=== PATIENT | male | born 1955 | race Caucasian/White ===

== ENCOUNTER 2017-09-13 21:42 | Emergency (ER) | payer OTHER ==
[2017-09-13 22:38] VITALS: BP 133/84; PULSE 111; RESP 21; TEMP 98.4; O2SAT 98
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
== END 2017-09-14 00:07 | disposition home or self-care (01) ==
LOC: NEPD 21:42
DX: Z02.89 Encounter for other administrative examinations (principal); Z72.0 Tobacco use
CPT/HCPCS: 99283

== ENCOUNTER 2017-09-17 14:00 | Inpatient (IN) | payer SELFPAY ==
[~2017-09-17] VITALS: Ht 182.9 cm; Wt 85.0 kg
[2017-09-17 14:09] VITALS: BP 174/92; PULSE 93; RESP 28; TEMP 98.7; O2SAT 95
[2017-09-17] MEDS: SODIUM CHLORIDE 0.9% FLUSH 10 ML FLUSH IVF PRN ×2 (14:41→15:50)
[2017-09-17] MEDS ORDERED: ONDANSETRON HCL 4 MG/2 ML VIAL IVP ONE (14:45)
[2017-09-17] MEDS ORDERED: MORPHINE SULFATE 4 MG/ML INJ IV PUSH ONE (14:45)
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
[2017-09-17 15:06] LABS: AUTOMATED NEUTROPHIL # 4.1 TH/MM3 (1.8-7.7); BASOPHIL # 0.1 TH/MM3 (0-0.2); EOSINOPHIL # 0.1 TH/MM3 (0-0.4); EOSINOPHIL % 0.9 % (0.0-4.0); HEMATOCRIT 40.9 % (39.0-51.0); HEMOGLOBIN 14.3 GM/DL (13.0-17.0); LYMPH % 22.6 % (9.0-44.0); LYMPHOCYTE # 1.5 TH/MM3 (1.0-4.8); MEAN CELL VOLUME 88.2 FL (80.0-100.0); MEAN CORPUSCULAR HEMOGLOBIN 30.8 PG (27.0-34.0); MEAN CORPUSCULAR HGB CONC 34.9 % (32.0-36.0); MEAN PLATELET VOLUME 7.9 FL (7.0-11.0); MONO % 11.9 % (0.0-8.0); MONOCYTE # 0.8 TH/MM3 (0-0.9); NEUT % 63.6 % (16.0-70.0); PLATELET COUNT 322 TH/MM3 (150-450); RED BLOOD COUNT 4.64 MIL/MM3 (4.50-5.90); RED CELL DISTRIBUTION WIDTH 13.5 % (11.6-17.2); WHITE BLOOD COUNT 6.5 TH/MM3 (4.0-11.0)
[2017-09-17 15:28] LABS: BICARBONATE 26.4 MEQ/L (21.0-32.0); BLOOD UREA NITROGEN 10 MG/DL (7-18); CALCIUM 9.8 MG/DL (8.5-10.1); CHLORIDE 106 MEQ/L (98-107); CREATININE 0.77 MG/DL (0.60-1.30); GLOMERULAR FILTRATION RATE 102 ML/MIN (>89); GLUCOSE,RANDOM 123 MG/DL (74-106); SODIUM (NA) 139 MEQ/L (136-145)
[2017-09-17] MEDS ORDERED: HYDROmorphone HCL PF 2 MG/ML VIAL IV PUSH ONE (15:30)
[2017-09-17] MEDS ORDERED: DEXAMETHASONE SOD PHOS 4 MG/ML VIAL IV PUSH ONE (15:45)
[2017-09-17] MEDS ORDERED: SODIUM CHLOR 0.9% 1000 ML INJ 1,000 ML IV ONE (15:45)
[2017-09-17 15:58] VITALS: BP 170/92; PULSE 96; RESP 20; O2SAT 97
[2017-09-17 16:00] VITALS: BP 163/86; PULSE 92; RESP 25; O2SAT 9; O2SAT 97
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
[2017-09-17 16:53] LABS: PROTHROMBIN TIME - PATIENT 10.4 SEC (9.8-11.6)
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
[2017-09-17] MEDS ORDERED: SODIUM CHLORIDE 0.9% FLUSH 10 ML FLUSH IV FLUSH PRN (17:30)
[2017-09-17] MEDS ORDERED: NALOXONE HCL 0.4 MG/ML AMP IV PUSH PRN (17:30)
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
[2017-09-17] MEDS ORDERED: PANTOPRAZOLE SODIUM 40 MG VIAL IV PUSH SCH (18:00)
[2017-09-17] MEDS: HYDROmorphone HCL PF 2 MG/ML VIAL IV PRN ×2 (18:38→22:29)
[2017-09-17 18:42] VITALS: BP 157/103; PULSE 110; RESP 18; O2SAT 96
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
[2017-09-17 20:00] VITALS: BP 147/91; PULSE 109; RESP 18; TEMP 97.2; O2SAT 95
[2017-09-17] MEDS ORDERED: SODIUM CHLORID 0.9% 500 ML IV PRN (21:45)
[2017-09-17] MEDS ORDERED: LACTATED RINGER'S 1000 ML IV PRN (21:45)
[2017-09-17] MEDS ORDERED: METOPROLOL TARTRATE 25 MG TAB PO PRN (21:45)
[2017-09-17] MEDS ORDERED: CHLORHEXIDINE GLUCONATE 2 % 1 PACK (2 CLOTHS) TOPICAL PRN (21:45)
[2017-09-17] MEDS ORDERED: POVIDONE IODINE 5% (ANTISEPSIS KIT) 4 APPLICATIONS EACH NARE PRN (21:45)
[2017-09-17] MEDS: DEXAMETHASONE SOD PHOS 4 MG/ML VIAL IV PUSH SCH (22:28)
[2017-09-17] MEDS: SODIUM CHLORIDE 0.9% FLUSH 10 ML FLUSH IV FLUSH SCH (22:29)
[2017-09-18 00:15] VITALS: BP 119/75; PULSE 95; RESP 18; TEMP 98.4; O2SAT 96
[2017-09-18 04:00] VITALS: BP 123/71; PULSE 84; RESP 17; TEMP 96.7; O2SAT 96
[2017-09-18] MEDS: DEXAMETHASONE SOD PHOS 4 MG/ML VIAL IV PUSH SCH ×2 (04:01→10:06)
[2017-09-18] MEDS: HYDROmorphone HCL PF 2 MG/ML VIAL IV PRN ×2 (04:01→10:04)
[2017-09-18] MEDS: SODIUM CHLORIDE 0.9% FLUSH 10 ML FLUSH IV FLUSH SCH (07:42)
[2017-09-18 08:00] VITALS: BP 148/90; PULSE 95; RESP 18; TEMP 97.5; O2SAT 96
[2017-09-18 08:31] LABS: AUTOMATED NEUTROPHIL # 7.8 TH/MM3 (1.8-7.7); BASOPHIL % 0.1 % (0.0-2.0); HEMATOCRIT 39.3 % (39.0-51.0); HEMOGLOBIN 13.5 GM/DL (13.0-17.0); LYMPH % 7.4 % (9.0-44.0); LYMPHOCYTE # 0.6 TH/MM3 (1.0-4.8); MEAN CELL VOLUME 89.2 FL (80.0-100.0); MEAN CORPUSCULAR HEMOGLOBIN 30.7 PG (27.0-34.0); MEAN CORPUSCULAR HGB CONC 34.4 % (32.0-36.0); MEAN PLATELET VOLUME 7.9 FL (7.0-11.0); MONO % 4.1 % (0.0-8.0); MONOCYTE # 0.4 TH/MM3 (0-0.9); NEUT % 88.4 % (16.0-70.0); PLATELET COUNT 305 TH/MM3 (150-450); RED CELL DISTRIBUTION WIDTH 13.8 % (11.6-17.2); WHITE BLOOD COUNT 8.8 TH/MM3 (4.0-11.0)
[2017-09-18 08:50] LABS: BICARBONATE 29.6 MEQ/L (21.0-32.0); CALCIUM 10.1 MG/DL (8.5-10.1); CREATININE 0.72 MG/DL (0.60-1.30)
[2017-09-18 11:50] VITALS: BP 146/85; PULSE 109; RESP 18; TEMP 96.9; O2SAT 99
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
[2017-09-18] MEDS ORDERED: LORazepam 2 MG TAB PO PRN (12:45)
[2017-09-18] MEDS ORDERED: LORazepam 1 MG TAB PO PRN (12:45)
[2017-09-18] MEDS ORDERED: FLUMAZENIL 0.5 MG/5 ML VIAL IV PUSH PRN (12:45)
[2017-09-18] MEDS ORDERED: LORazepam 2 MG/ML VIAL IV PUSH PRN ×4 (12:45)
[2017-09-18] MEDS ORDERED: CLINDAMYCIN 600 MG/NS PREMIX 50 ML IV SCH (14:00)
--- NOTE | 2017-09-18 15:39 | EKG ---
Date Performed: 09/17/2017 Time Performed: 16:04:03 PTAGE: 62 years EKG: Sinus rhythm BORDERLINE LEFT AXIS DEVIATION MODERATE INTRAVENTRICULAR CONDUCTION DELAY BORDERLINE ECG NO PREVIOUS TRACING DOCTOR: Flynn Salinas Interpretating Date/Time 09/18/2017 15:38:33
== END 2017-09-18 13:09 | disposition left against medical advice (07) | DRG 158 ==
LOC: NEPE 14:00 → NEDA 16:55 → N06A 19:39
PROVIDERS: ADMIT Internal Medicine; ATTEND Internal Medicine
DX: S02.602A Fracture of unspecified part of body of left mandible, initial encounter for closed fracture (principal); F10.239 Alcohol dependence with withdrawal, unspecified; M48.02 Spinal stenosis, cervical region; S02.651A Fracture of angle of right mandible, initial encounter for closed fracture; M50.31 Other cervical disc degeneration, high cervical region; R00.0 Tachycardia, unspecified; F12.10 Cannabis abuse, uncomplicated; F14.10 Cocaine abuse, uncomplicated; F17.210 Nicotine dependence, cigarettes, uncomplicated; F32.9 Major depressive disorder, single episode, unspecified; F41.9 Anxiety disorder, unspecified; Y90.0 Blood alcohol level of less than 20 mg/100 ml; Y04.2XXA Assault by strike against or bumped into by another person, initial encounter
CPT/HCPCS: 70110; 70450; 70486; 71045; 72125; 80048; 80307; 85025; 85610; 85730; 86850; 86900; 86901; 93005; 96365; 96375; C9113; J0690; J1100; J1170; J2270; J2405; J7030; J7120

== ENCOUNTER 2017-09-20 20:09 | Emergency (ER) | payer SELFPAY ==
[~2017-09-20] VITALS: Ht 182.9 cm; Wt 80.0 kg
[2017-09-20 20:10] VITALS: BP 147/73; PULSE 98; RESP 16; TEMP 98.1; O2SAT 95
[2017-09-21] MEDS ORDERED: HYDR-3366 PO (10:10)
[2017-09-21] MEDS ORDERED: BENZ100 PO (10:11)
== END 2017-09-20 21:49 | disposition left against medical advice (07) ==
LOC: NED 20:09
DX: R68.84 Jaw pain (principal); Z53.21 Procedure and treatment not carried out due to patient leaving prior to being seen by health care provider
CPT/HCPCS: 99281

== ENCOUNTER 2017-09-21 08:18 | Emergency (ER) | payer SELFPAY ==
[~2017-09-21] VITALS: Ht 182.9 cm; Wt 80.0 kg
[2017-09-21 08:21] VITALS: BP 143/81; PULSE 89; RESP 16; TEMP 97.5; O2SAT 98
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
[2017-09-21] MEDS ORDERED: ACETAMINOPHEN/HYDROcodone 325 MG/5 MG TAB PO ONE (10:00)
[2017-09-21] MEDS ORDERED: HYDR-3366 PO (10:10)
[2017-09-21] MEDS ORDERED: BENZ100 PO (10:11)
[2017-09-22] MEDS ORDERED: AMOX500C PO (17:34)
== END 2017-09-21 10:21 | disposition home or self-care (01) ==
LOC: NEPE 08:18
DX: S02.609A Fracture of mandible, unspecified, initial encounter for closed fracture (principal); F17.200 Nicotine dependence, unspecified, uncomplicated; F12.90 Cannabis use, unspecified, uncomplicated; W22.8XXA Striking against or struck by other objects, initial encounter
CPT/HCPCS: 99283

== ENCOUNTER 2017-09-22 17:12 | Emergency (ER) | payer SELFPAY ==
[~2017-09-22] VITALS: Ht 182.9 cm; Wt 80.0 kg
[~2017-09-22 17:12] MED LIST: BENZ100 PO; HYDR-3366 PO
[2017-09-22 17:13] VITALS: BP 164/77; PULSE 97; RESP 18; TEMP 98.4; O2SAT 98
[2017-09-22] MEDS ORDERED: ACETAMINOPHEN/HYDROcodone 325 MG/5 MG TAB PO ONE (17:30)
[2017-09-22] MEDS ORDERED: AMOX500C PO (17:34)
--- NOTE | 2017-09-22 17:35 | PD ---
HPI Chief Complaint: Oral / Dental Pain or Problem Time Seen by Provider: 17:24 Travel History International Travel<30 days: No Contact w/Intl Traveler<30days: No Traveled to known affect area: No History of Present Illness HPI Patient 62-year-old male seen and examined by me yesterday, please see my note yesterday for further details. Patient has no new complaints this states he can get his pain medicine filled and came here for an additional pain pill. PFSH Past Medical History Hx Anticoagulant Therapy: No Depression: Yes Cardiovascular Problems: No Chemotherapy: No Cerebrovascular Accident: No Diabetes: No Diminished Hearing: No Genitourinary: No Musculoskeletal: No Neurologic: No Reproductive: No Respiratory: No ?: Not Past Surgical History Abdominal Surgery: Yes (APPENDECTOMY ) Appendectomy: Yes Ear Surgery: Yes (TUBES PLACED IN EARS) Oral Surgery: Yes (TONSILLECTOMY) Tonsillectomy: Yes Other Surgery: Yes Social History Alcohol Use: Yes (occasionally) Tobacco Use: Yes (half a pack a day) Substance Use: Yes (Marijuana) Allergies-Medications (Allergen,Severity, Reaction): Coded Allergies: No Known Allergies (Unverified , 09/21/17) Reported Meds & Prescriptions Reported Meds & Active Scripts Active Amoxicillin 500 Mg Cap 500 Mg PO BID 10 Days Tessalon Perles (Benzonatate) 100 Mg Cap 100 Mg PO TID PRN [place] (Hydrocodone-Acetaminophen) 10-325 Mg Tab 1 Tab PO Q6H PRN Review of Systems Except as stated in HPI: all other systems reviewed are Neg Physical Exam Narrative GENERAL: Well-nourished, well-developed patient. SKIN: Focused skin assessment warm/dry. HEAD: Normocephalic. EYES: No scleral icterus. No injection or drainage. NECK: Supple, trachea midline. No JVD or lymphadenopathy.. ENT: As documented yesterday mild left-sided jaw swelling, he is eating an orange in no obvious distress CARDIOVASCULAR: Regular rate and rhythm without murmurs, gallops, or rubs. RESPIRATORY: Breath sounds equal bilaterally. No accessory muscle use. GASTROINTESTINAL: Abdomen soft, non-tender, nondistended. MUSCULOSKELETAL: No cyanosis, or edema. BACK: Nontender without obvious deformity. No CVA tenderness. Data Data Last Documented VS Vital Signs Date Time Temp Pulse Resp B/P (MAP) Pulse Ox O2 Delivery O2 Flow Rate FiO2 2/25/18 17:41 09/22/17 17:13 98.4 97 18 98 Orders Orders Acetamin-Hydrocod 325-5 Mg ([place] 5-325 (09/22/17 17:30) Amoxicillin (Trimox) (09/22/17 21:00) Ed Discharge Order (09/22/17 17:32) MDM Medical Decision Making Medical Screen Exam Complete: Yes Emergency Medical Condition: Yes Differential Diagnosis Jaw fracture, jaw pain, poor social circumstance Narrative Course Patient room to the emergency department, review my note from yesterday he was been instructed to follow-up outpatient with Dr. Stauffer, case management has come to discussed with the patient and she will also follow him at the [employer] [facility] [employer] which she also works. The patient has no new complaints that warrant further workup at this time, was given pain medication. I did place inhibitory referral yesterday, also added amoxicillin to help prevent infection. He is stable for discharge per Diagnosis Primary Impression: Jaw pain Referrals: Jose Stauffer DMD Med/Other Pt SpecificInfo: Prescription(s) given Scripts Amoxicillin (Amoxicillin) 500 Mg Cap 500 MG PO BID for Infection for 10 Days, #20 CAP 0 Refills Prov: Rohan Gill MD 09/22/17 Disposition: 01 DISCHARGE HOME Condition: Stable Rohan Gill MD Sep 22, 2017 17:35
[2017-09-22] MEDS ORDERED: AMOXICILLIN (TRIHYDRATE) 500 MG CAP PO SCH (21:00)
== END 2017-09-22 17:56 | disposition home or self-care (01) ==
LOC: NEPC 17:12
DX: R68.84 Jaw pain (principal); F32.9 Major depressive disorder, single episode, unspecified; F17.200 Nicotine dependence, unspecified, uncomplicated; F12.90 Cannabis use, unspecified, uncomplicated
CPT/HCPCS: 99283

== ENCOUNTER 2017-09-23 10:36 | Emergency (ER) | payer SELFPAY ==
[~2017-09-23 10:36] MED LIST changes: +AMOX500C PO
[2017-09-23 11:29] VITALS: BP 157/86; PULSE 92; RESP 20; TEMP 98.4
--- NOTE | 2017-09-23 12:40 | PD ---
HPI Chief Complaint: Medical Clearance Time Seen by Provider: 12:36 Travel History International Travel<30 days: No Contact w/Intl Traveler<30days: No Traveled to known affect area: No History of Present Illness HPI This is a 62-year-old male with recent mandible fracture. He is supposed to be following up with cranial facial surgeon Dr. Stauffer. He claims no knowledge of this and thus he presents today with persistent mandible pain. According to Previous visits, the patient has been referred to Dr. Stauffer several times and a mandatory outpatient referral has been placed. He claims that he has not spoken to the case work aide about this. He denies any acute issue today. PFSH Past Medical History Hx Anticoagulant Therapy: No Depression: Yes Cardiovascular Problems: No Chemotherapy: No Cerebrovascular Accident: No Diabetes: No Diminished Hearing: No Genitourinary: No Musculoskeletal: No Neurologic: No Reproductive: No Respiratory: No Past Surgical History Abdominal Surgery: Yes (APPENDECTOMY ) Appendectomy: Yes Ear Surgery: Yes (TUBES PLACED IN EARS) Oral Surgery: Yes (TONSILLECTOMY) Tonsillectomy: Yes Other Surgery: Yes Social History Alcohol Use: Yes (occasionally) Tobacco Use: Yes (half a pack a day) Substance Use: Yes (Marijuana) Allergies-Medications (Allergen,Severity, Reaction): Coded Allergies: No Known Allergies (Unverified , 09/21/17) Reported Meds & Prescriptions Reported Meds & Active Scripts Active Amoxicillin 500 Mg Cap 500 Mg PO BID 10 Days Review of Systems General / Constitutional: No: Fever, Chills HENT: Positive: Other (positive for facial pain) Physical Exam Narrative GENERAL: Well-nourished male in no acute distress SKIN: Warm and dry. Ecchymosis is noted to the face. HEAD: Atraumatic. Normocephalic. EYES: Pupils equal and round. No scleral icterus. No injection or drainage. ENT: No nasal bleeding or discharge. Mucous membranes pink and moist. Tender to palpation along the jaw. Slight trismus. NECK: Trachea midline. No JVD. CARDIOVASCULAR: Regular rate and rhythm. No murmur appreciated. RESPIRATORY: No accessory muscle use. Clear to auscultation. Breath sounds equal bilaterally. Data Data Last Documented VS Vital Signs Date Time Temp Pulse Resp B/P (MAP) Pulse Ox O2 Delivery O2 Flow Rate FiO2 09/23/17 11:29 98.4 92 20 157/86 (109) Orders Orders Acetamin-Hydrocod 325-5 Mg ([place] 5-325 (09/23/17 13:00) Ed Discharge Order (09/23/17 12:51) MDM Medical Decision Making Medical Screen Exam Complete: Yes Emergency Medical Condition: Yes Medical Record Reviewed: Yes Differential Diagnosis Mandible fracture, noncompliance, ecchymosis, dislocation Narrative Course The case work aide came and spoke to the patient in regards to his mandatory outpatient referral. He will be given a single dose of Lortab here. He is stable for discharge. Diagnosis Primary Impression: Mandible fracture Referrals: Jose Stauffer DMD Additional Instructions: Soft diet. Follow-up with Dr. Stauffer as discussed. Our case work aide will be calling at some point to help facilitate an appointment. Return for any emergent medical conditions. Med/Other Pt SpecificInfo: No Change to Meds Disposition: 01 DISCHARGE HOME Condition: Stable Bud Quintanilla Sep 23, 2017 12:40
[2017-09-23] MEDS ORDERED: ACETAMINOPHEN/HYDROcodone 325 MG/5 MG TAB PO ONE (13:00)
== END 2017-09-23 13:10 | disposition home or self-care (01) ==
LOC: NEPK 10:36
DX: S02.609A Fracture of mandible, unspecified, initial encounter for closed fracture (principal); X58.XXXA Exposure to other specified factors, initial encounter
CPT/HCPCS: 99283

== ENCOUNTER 2017-10-02 20:53 | Emergency (ER) | payer SELFPAY ==
[~2017-10-02 20:53] MED LIST changes: -BENZ100 PO; -HYDR-3366 PO
[2017-10-02 20:59] VITALS: BP 139/82; PULSE 101; RESP 18; TEMP 97.8; O2SAT 99
[2017-10-02] MEDS ORDERED: IBUP1TAB7 PO (23:58)
[2017-10-03] MEDS ORDERED: IBUPROFEN 800 MG TAB PO ONE
--- NOTE | 2017-10-03 00:01 | PD ---
HPI Chief Complaint: Musculoskeletal Complaint Time Seen by Provider: 23:44 Travel History International Travel<30 days: No Contact w/Intl Traveler<30days: No Traveled to known affect area: No History of Present Illness HPI This is a 62-year-old male who presents for evaluation of mandible fracture. The patient was admitted in August after sustaining a mandible fracture however he left AMA prior to ORIF repair. He has subsequently presented here multiple times for pain control and attempts at outpatient follow-up. Mandatory outpatient referrals for maxillofacial follow-up have been placed however the patient has not heard from the sample case porter. He continues to have pain in his jaw, left side worse than right, throbbing, constant, worse with movement. He denies any new injuries. No other complaints. PFSH Past Medical History Hx Anticoagulant Therapy: No Depression: Yes Cardiovascular Problems: No Chemotherapy: No Cerebrovascular Accident: No Diabetes: No Diminished Hearing: No Genitourinary: No Musculoskeletal: No Neurologic: No Reproductive: No Respiratory: No Past Surgical History Abdominal Surgery: Yes (APPENDECTOMY ) Appendectomy: Yes Ear Surgery: Yes (TUBES PLACED IN EARS) Oral Surgery: Yes (TONSILLECTOMY) Tonsillectomy: Yes Other Surgery: Yes Social History Alcohol Use: Yes (occasionally) Tobacco Use: Yes (half a pack a day) Substance Use: Yes (Marijuana) Allergies-Medications (Allergen,Severity, Reaction): Coded Allergies: No Known Allergies (Unverified , 09/21/17) Reported Meds & Prescriptions Reported Meds & Active Scripts Active Amoxicillin 500 Mg Cap 500 Mg PO BID 10 Days Review of Systems General / Constitutional: No: Fever HENT: Positive: Other (Positive for jaw pain) Physical Exam Narrative GENERAL: Disheveled male in no acute distress SKIN: Warm and dry. HEAD: Atraumatic. Normocephalic. EYES: Pupils equal and round. No scleral icterus. No injection or drainage. ENT: No nasal bleeding or discharge. Mucous membranes pink and moist. Trismus noted. Tender to palpation mandible. NECK: Trachea midline. No JVD. CARDIOVASCULAR: Regular rate and rhythm. No murmur appreciated. RESPIRATORY: No accessory muscle use. Clear to auscultation. Breath sounds equal bilaterally. Data Data Last Documented VS Vital Signs Date Time Temp Pulse Resp B/P (MAP) Pulse Ox O2 Delivery O2 Flow Rate FiO2 3/7/18 20:59 97.8 101 18 139/82 (101) 99 Orders Orders Mandatory Outpatient Referral (10/02/17 23:49) Ibuprofen (Motrin) (10/03/17 00:00) MDM Medical Decision Making Medical Screen Exam Complete: Yes Emergency Medical Condition: Yes Medical Record Reviewed: Yes Differential Diagnosis Mandible fracture, dislocation, dentalgia Narrative Course I discussed with Esme the sample case porter who recommends that the patient call Rehana sample case porter tomorrow morning after 9 AM and speak to her directly at . These instructions were discussed in great detail with the patient and he was given a piece of paper with these instructions. Another mandatory outpatient referral has been placed. He will be discharged with ibuprofen. Diagnosis Primary Impression: Mandible fracture Referrals: Jose Stauffer DMD Additional Instructions: As discussed, call sample case porter at [phone] tomorrow after 9 AM. Med/Other Pt SpecificInfo: Prescription(s) given Scripts Ibuprofen (Ibuprofen) 800 Mg Tab 800 MG PO Q6HR Y for PAIN, #40 TAB 0 Refills Prov: Bassam Garcia MD 10/02/17 Disposition: 01 DISCHARGE HOME Condition: Stable Bud Quintanilla Oct 03, 2017 00:01
== END 2017-10-03 00:20 | disposition home or self-care (01) ==
LOC: NEPK 20:53
DX: S02.609A Fracture of mandible, unspecified, initial encounter for closed fracture (principal)
CPT/HCPCS: 99282